=== PATIENT | female | born 1985 | race Caucasian/White ===

== ENCOUNTER 2020-06-29 18:59 | Emergency (ER) | payer SELFPAY ==
[2020-06-29 19:28] VITALS: BP 148/87; PULSE 111; RESP 18; TEMP 36.8; O2SAT 99; BMI 24.3
--- NOTE | 2020-06-29 20:04 | XRR_ITS ---
PROCEDURE INFORMATION: Exam: XR Left Forearm Exam date and time: 06/29/2020 9:28 PM Age: 35 years old Clinical indication: Injury or trauma; Fall; Blunt trauma (contusions or hematomas); Arm, lower; Left TECHNIQUE: Imaging protocol: XR Left forearm. Views: 2 views. COMPARISON: No relevant prior studies available. FINDINGS: Bones/joints: Nondisplaced, intra-articular fracture of the radial styloid. No dislocation. Soft tissues: Normal. XR/XR forearm LT 2V [id number] IMPRESSION: Nondisplaced, intra-articular fracture of the radial styloid.
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
[2020-06-29 21:28] VITALS: PULSE 89; O2SAT 96
[2020-06-29 21:39] VITALS: BP 137/103; PULSE 93; O2SAT 96
--- NOTE | 2020-07-01 09:38 | DCPLANNER ---
manager med surg had message to schedule a follow up appointment for patient with ortho. manager med surg called the ortho clinic, spoke with Anne, gave clinic patients information. manager med surg was told that patients information would be printed and reviewed. Clinic will call patient with appointment information.
--- NOTE | 2020-07-03 10:18 | DCPLANNER ---
Patient has a followup appointment scheduled for Friday, July 03, 2020 at 11:[address] Melara. Clinic will call patient with appointment information.
--- NOTE | 2020-07-10 08:18 | DCPLANNER ---
Patient had a follow up appointment scheduled for 07.03.[address] Melara at [facility] - patient did attend appointment.
== END 2020-06-29 21:45 | disposition home or self-care (01) ==
PROVIDERS: Emergency Provider Nurse Practitioner Family
DX: S52.572A Other intraarticular fracture of lower end of left radius, initial encounter for closed fracture (principal); Y04.8XXA Assault by other bodily force, initial encounter
CPT/HCPCS: 29125; 73090; 99283

== ENCOUNTER 2020-07-03 13:41 | Outpatient (CLI) | payer SELFPAY | END 2020-07-03 13:42 | disposition home or self-care (01) | LOC: SPT 13:43 | PROVIDERS: Visit Provider Orthopaedic Surgery | DX: Z46.89 Encounter for fitting and adjustment of other specified devices (principal); S52.572D Other intraarticular fracture of lower end of left radius, subsequent encounter for closed fracture with routine healing; X58.XXXD Exposure to other specified factors, subsequent encounter | CPT/HCPCS: 97760; L3982 ==

== ENCOUNTER 2020-10-26 12:24 | Inpatient (IN) | payer SELFPAY ==
[2020-10-26 12:37] VITALS: BP 163/90; PULSE 85; RESP 16; TEMP 36.3; O2SAT 99; BMI 29.6
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
[2020-10-26 13:20] LABS: Amphetamines Screen Urine Negative (Negative); Barbiturates Screen Urine Negative (Negative); Benzodiazepines Screen Urine Negative (Negative); Cocaine Screen Urine Negative (Negative); Opiate Screen Urine Negative (Negative); PCP Screen Urine Negative (Negative); THC Screen Urine Positive (Negative)
[2020-10-26 13:36] LABS: Basophils % 0.3 %; Eosinophils % 0.3 %; Hematocrit 42.9 % (37.0-47.0); Hemoglobin 14.1 g/dL (11.5-15.3); Lymphocytes # 1.7 10^3/uL (0.8-4.8); Lymphocytes % 19.5 %; Mean Corpuscular HGB Conc 32.9 g/dL (30.0-36.0); Mean Corpuscular Hemoglobin 32.1 pg (28.0-34.0); Mean Corpuscular Volume 97.7 fL (81-99); Mean Platelet Volume 10.1 fL (7.4-10.4); Monocytes # 0.4 10^3/uL (0.2-0.9); Monocytes % 4.5 %; Neutrophils # 6.56 10^3/uL (1.8-7.7); Neutrophils % 75.2 %; Nucleated Red Blood Cells % 0 %; Platelet Count 314 10^3/cmm (130-400); Red Blood Count 4.39 10^6/uL (4.1-5.3); Red Cell Distribution Width 13.7 % (12.1-15.1); White Blood Count 8.7 10^3/uL (4.0-10.0)
[2020-10-26 13:40] VITALS: BP 155/87; PULSE 79; RESP 18; O2SAT 100
[2020-10-26 13:48] LABS: HCG, Serum Qual Negative (Negative)
[2020-10-26 13:55] LABS: Alanine Aminotransferase 6 U/L (0-33); Albumin Level 4.2 g/dL (3.5-5.2); Alkaline Phosphatase 77 IU/L (35-105); Anion Gap 14.4 (5-19); Aspartate Amino Transferase 10 U/L (0-32); Blood Urea Nitrogen 15 mg/dL (6-20); Calcium 8.9 mg/dL (8.5-10.5); Carbon Dioxide 28 mmol/L (22-29); Chloride 101 mmol/L (98-107); Globulin 2.5 g/dL (1.3-4.6); Glomerular Filtration Rate 94.2 mL/min (90-130); Glucose 111 mg/dL (65-115); Osmolality Calculated 290 mOsm/kg (285-295); Potassium 4.4 mmol/L (3.5-5.1); Salicylate 0.5 mg/dL (3-10); Sodium 139 mmol/L (136-145); Total Bilirubin 0.2 mg/dL (0.15-1.2); Total Protein 6.7 g/dL (6.6-8.7)
[2020-10-26 13:56] LABS: Acetaminophen < 5.0 ug/mL (10-30); Alcohol Level < 10 mg/dL (0-10)
[2020-10-26 14:41] LABS: SARS Covid-2 Antigen Negative (Negative)
[2020-10-26 15:59] VITALS: PULSE 77; RESP 18; O2SAT 100
[2020-10-26 16:23] VITALS: BP 141/91; PULSE 65; RESP 18; TEMP 36.2; O2SAT 98
[2020-10-26] MEDS: OLANZapine 5 mg ODT PO (18:32)
--- NOTE | 2020-10-26 18:35 | PC.NURSE ---
PRN MED PT GIVEN 5MG ZYPREXA FOR ANXIETY, WILL CONTINUE TO MONITOR.
[2020-10-26 20:26] VITALS: BP 135/87; PULSE 71; RESP 18; TEMP 36.6; O2SAT 96
[2020-10-27 06:00] VITALS: BP 149/101; PULSE 64; RESP 21; TEMP 36.7; O2SAT 96; BMI 29.6
--- NOTE | 2020-10-27 09:36 | PM.NHP ---
Providers/Chief Complaint Admitting Physician: Rafa Royal DO Chief Complaint: SI HPI NPU History of Present Illness Alcira Garza is a 35 year old female with no past psychiatric history presented to the emergency department in distress reporting severe depressive and anxiety symptoms in the context of her mother with dementia missing after the patient was required to spend 5 days in long-term for positive weekly drug test. Patient states that she does not know what happened to her mother but suspects that either her or her cousin is responsible for her missing. Patient reports daily low mood states and despair stating that she does not want to be alive anymore but denies any history of suicide attempts or self-harm behavior but continues to report passive thoughts with no active intent or plan. Patient also reports racing thoughts, difficulty controlling her worrying which has impaired her sleep. Denies any panic attacks or panic symptoms. Per above, patient with no history of any major depressive episodes. Patient reports that her current depressive symptoms have occurred solely in the context of acute stressor over the last 2 months since her mother's been missing. She denies past or recent hypomanic or manic episodes She denies any history or recent episodes of perceptual disturbances, no visual, auditory hallucinations, no delusions. Psychiatric review of systems is otherwise negative Patient reports that she lives in a camper and has 2 children that are 15 and 17 that are with her but currently take care of themselves and have their own jobs. Review of Systems General: Reports: 10 or more systems reviewed and unremarkable except in HPI and below Meds NPU Home Medications Medication Instructions Recorded Confirmed Last Taken Type No Known Home Medications 10/26/20 10/26/20 Unknown History Allergies Allergy/AdvReac Type Severity Reaction Status Date / Time buspirone [From BuSpar] Allergy ADR-Depress Verified 10/26/20 13:49 ion [facility] N[facility] Other Psychiatric History: Other Psychiatric History: Reports briefly being treated with Xanax after delivery of her oldest child 17 years ago, otherwise no treatment with psychotropic medication and never been seen by a psychiatrist or therapist Denies any history of psychiatric hospitalization Denies any history of suicide attempt or self-harm behavior Mental Status Exam MSE Comments: Patient is tearful, distressed, sitting up in her bed, tired appearing, appropriately dressed in hospital scrubs, disheveled, good eye contact Psychomotor activity is neither increased nor decreased, no agitation Speech is normal rate and volume, spontaneous, fair articulation, not pressured I am upset, congruent, tearful throughout interview Alert and oriented to person, place, time, situation Memory and concentration appear to be intact per interview Intellectual functioning appears to be average based on vocabulary, interview Thought process, linear, no flight of ideas, no looseness of associations Thought content, no delusions, no hallucinations, passive suicidal thoughts with no active intent or plan, no homicidal ideation Insight and judgment appear to be intact Vitals/I&O/Wt Last Vital Signs Temp 98.1 F 10/27/20 06:00 Pulse 64 10/27/20 06:00 Resp 21 H 10/27/20 06:00 BP 149/101 10/27/20 06:00 Pulse Ox 96 10/27/20 06:00 Weight last 48 hrs Weight 73.573 kg Weight 73.573 kg Data NPU : 10/26/20 13:24 10/26/20 13:24 A&P Assessment and plan (1) Suicidal ideation: Status: Acute (2) Adjustment disorder with mixed anxiety and depressed mood: Status: Acute Additional A&P Information Patient with severe depressive and anxiety symptoms in the context of an acute stressor of her mother missing after the patient had to serve a few days in long-term for a positive drug test for CPS. Patient with no history of major depressive episodes or anxiety prior to this acute stressor. Patient would benefit from initiating a low-dose antidepressant as well as coordination for post discharge counseling targeting coping strategies in the context of ongoing life stressors. Patient does have history of substance abuse with recent legal issues related to possession of methamphetamine and ongoing, daily cannabis use. VOLUNTARY ADMIT to inpatient psychiatry START citalopram 20 mg daily targeting depressive and anxiety symptoms Encouraged patient to participate in unit activities, unit milieu Coordinate with licensed clinical social worker for post discharge mental health care, substance counseling/treatment Involuntary Hold Information 96 Hour Hold: 96 Hour Involuntary Admission: No Attestations NPU Medical Necessity Statement*: Psychiatric hospitalization is indicated for medication stabilization, coordination for safe discharge Anticipate hospital stay to exceed 2 midnights Time Spent in Patient Care: Greater than 35 minutes (>than 50% of time spent in counselling and/or direct pt care on unit). Coding Level of Care Code Acute [employer] Consultant for Ivana Goldman Diagnoses Suicidal ideation R45.851 Adjustment disorder with mixed anxiety and depressed mood F43.23
[2020-10-27] MEDS: citalopram 20 mg Tablet PO (10:13)
[2020-10-27] MEDS: nicotine 21 mg Patch 1 PATCH TRANSDERMA (13:00)
[2020-10-27 14:00] VITALS: BP 157/86; PULSE 65; RESP 18; TEMP 36; O2SAT 95
[2020-10-27] MEDS: OLANZapine 5 mg ODT PO (16:18)
[2020-10-27] MEDS: trazodone 50 mg Tablet PO (21:46)
[2020-10-27 22:00] VITALS: BP 150/93; PULSE 72; RESP 18; TEMP 36.7; O2SAT 98
[2020-10-28] MEDS: hyDROXYzine 25 mg Capsule 50 MG PO ×2 (04:57→18:28)
[2020-10-28 05:45] VITALS: BP 137/87; PULSE 65; RESP 18; TEMP 36.9; O2SAT 95
[2020-10-28] MEDS: nicotine 21 mg Patch 1 PATCH TRANSDERMA (08:57)
[2020-10-28] MEDS: citalopram 20 mg Tablet PO (08:57)
[2020-10-28] MEDS: OLANZapine 5 mg ODT PO ×3 (08:59→22:59)
--- NOTE | 2020-10-28 12:38 | PM.NPN ---
Subjective NPU Subjective: Interval history: Reports significant improvement in her mood, less racing thoughts Reports that she slept well, feels rested Compliant with medication, no reported medication side effects Per staff, no interval behavioral disturbances Mental Status Exam MSE Comments: Sitting up on her bed, calm, cooperative, interactive, good eye contact, appropriately groomed and dressed Psychomotor activity is neither increased nor decreased, no agitation Speech is normal rate and volume, spontaneous, fair articulation, not pressured I am feeling little better, congruent, not labile Alert and oriented to person, place, time, situation Memory and concentration appear to be intact per interview Intellectual functioning appears to be average based on vocabulary, interview Thought process, linear, no flight of ideas, no looseness of associations Thought content, no delusions, no hallucinations, no suicidal ideation, no homicidal ideation Insight and judgment appear to be intact Vitals/I&O/Wt Last Vital Signs Temp 98.4 F 10/28/20 05:45 Pulse 65 10/28/20 05:45 Resp 18 10/28/20 05:45 BP 137/87 10/28/20 05:45 Pulse Ox 95 10/28/20 05:45 Weight last 48 hrs Weight 73.573 kg Data NPU : 10/26/20 13:24 10/26/20 13:24 A&P Assessment and plan (1) Suicidal ideation: Status: Acute (2) Adjustment disorder with mixed anxiety and depressed mood: Status: Acute (3) Grief reaction: Status: Acute Additional A&P Information Reports significant improvements, improved sleep CONTINUE current medication, continue to monitor Involuntary Hold Information 96 Hour Hold: 96 Hour Involuntary Admission: No Attestations NPU Medical Necessity Statement*: Continues to require psychiatric hospitalization for medication stabilization Coding Level of Care Code Acute Drone Pilot for [facility] Fwd Diagnoses Suicidal ideation R45.851 Adjustment disorder with mixed anxiety and depressed mood F43.23 Grief reaction F43.21
--- NOTE | 2020-10-28 13:00 | PC.NURSE ---
Patient came to the nurses station requesting something for anxiety. Administered Zyprexa.
[2020-10-28 14:00] VITALS: BP 136/79; PULSE 65; RESP 18; TEMP 36.7; O2SAT 96
[2020-10-28] MEDS: trazodone 50 mg Tablet PO (21:29)
--- NOTE | 2020-10-28 21:58 | PC.NURSE ---
pt given Trazodone 50mg po for request of sleep aide.
[2020-10-28 22:00] VITALS: BP 135/85; PULSE 77; RESP 17; TEMP 37; O2SAT 95
--- NOTE | 2020-10-28 23:00 | PC.NURSE ---
Pt came to the nurses desk requesting can i have that pill that dissolves under my tongue?
[2020-10-29 06:00] VITALS: BP 123/86; PULSE 77; RESP 17; TEMP 36.6; O2SAT 96
[2020-10-29] MEDS: citalopram 20 mg Tablet PO (08:00)
[2020-10-29] MEDS: OLANZapine 5 mg ODT PO (08:03)
--- NOTE | 2020-10-29 08:10 | PC.NURSE ---
0809 administered Zyprexa Zydis 5mg for anxiety this morning, will continue to monitor.
[2020-10-29] MEDS: nicotine 21 mg Patch 1 PATCH TRANSDERMA (09:08)
--- NOTE | 2020-10-29 09:42 | P.DS_ITS ---
Diagnoses at Discharge Discharge Diagnosis (1) Suicidal ideation: Status: Acute (2) Adjustment disorder with mixed anxiety and depressed mood: Status: Acute (3) Grief reaction: Status: Acute Reason for Visit Reason for Visit: SI Hospital Course Hospital Course 35 year old female with no past psychiatric history presented to the emergency department in distress reporting severe depressive and anxiety symptoms in the context of her mother with dementia missing after the patient was required to spend 5 days in [facility] for positive weekly drug test. Patient states that she does not know what happened to her mother but suspects that either her or her cousin is responsible for her missing. Patient was continuing to report some depressive and anxiety symptoms in the context of her acute stressor and was started on citalopram 20 mg daily which she tolerated well with no reports of any medication side effects. Patient reconstituted quite quickly after initiating medication as well as coordination for following care. Patient participated in unit milieu with no reports of any behavioral disturbances. boom worker arranged for post discharge sober living and following counseling. Patient was not suicidal and was not endorsing any psychiatric symptoms at the time of discharge and did not appear to pose an imminent threat of harm to self or others. Low to moderate risk of harm to self given no current suicidal ideation and no current endorsement of any psychiatric symptoms although her risk may be elevated if she continues to abuse substances or alcohol leading to unexpected, impulsive behavior. Risk mitigation included psychiatric hospitalization for medication stabilization, coordination for safe discharge including arrangement for sober living, follow on substance counseling/treatment. Patient was able to communicate her understanding of the need to abstain from use of substances and alcohol as well as the need for follow-up medication compliance, compliance with medication management follow-up as well as compliance with substance counseling/treatment in order to further mitigate her risk of harm to self and others. Involuntary Hold Information 96 Hour Hold: 96 Hour Involuntary Admission: No Mental Status Exam MSE Comments: Appropriately groomed and dressed, polite, interactive, good eye contact Psychomotor activity is neither increased nor decreased, no agitation Speech is normal rate and volume, spontaneous, fair articulation, not pressured I feel good, congruent, not labile Alert and oriented to person, place, time, situation Memory and concentration appear to be intact per interview Thought process, linear, no flight of ideas, no looseness of associations Thought content, no delusions, no hallucinations, no suicidal ideation, no homicidal ideation Insight and judgment appear to be intact Discharge Data Vitals: Last Vital Signs Temp 97.9 F 10/29/20 06:00 Pulse 77 10/29/20 06:00 Resp 17 10/29/20 06:00 BP 123/86 10/29/20 06:00 Pulse Ox 96 10/29/20 06:00 Discharge Plan Discharge Patient Disposition: Home Condition: Stable Prescriptions: New citalopram 20 mg Tablet 20 mg PO DAILY Qty: 30 RF: 0 No Action No Known Home Medications RF: 0 Discharge Orders: Discharge Order (Routine); Ordered 10/29/20 Ordered By: Rafa Royal Referrals: [facility] [Outside] [facility] [Outside] Discharge Diet: Regular Discharge Activity: Resume usual activity Patient Instructions: Opioid Safety Discharge Attestations NPU Time Spent in Discharge Care*: greater than 30 min Status at Discharge: Cognitive status at discharge: cognitively intact , Behavioral status at discharge: cooperative , Functional status at discharge: independent ambulation Overall status at discharge: patient is back to baseline Coding Level of Care Code Acute Chg FW DC note Diagnoses Suicidal ideation R45.851 Adjustment disorder with mixed anxiety and depressed mood F43.23 Grief reaction F43.21
[2020-10-29 09:51] VITALS: BP 123/86; PULSE 77; RESP 17; TEMP 36.6; O2SAT 96
== END 2020-10-29 12:38 | disposition home or self-care (01) | DRG 882 ==
LOC: ER 14:03 → NP 15:10
PROVIDERS: Admitting Provider Psychiatry & Neurology Psychiatry; Emergency Provider Physician Assistant; Visit Provider Psychiatry & Neurology Psychiatry
DX: F43.23 Adjustment disorder with mixed anxiety and depressed mood (principal); R45.851 Suicidal ideations; F19.10 Other psychoactive substance abuse, uncomplicated; F12.90 Cannabis use, unspecified, uncomplicated
CPT/HCPCS: 80053; 80306; 80307; 84703; 85025; 87426; 99285

== ENCOUNTER → 2021-01-17 11:58 | Outpatient (BNVA) | payer SELFPAY | PROVIDERS: Visit Provider Nurse Practitioner Family | DX: Z20.822 Contact with and (suspected) exposure to COVID-19 (principal) | CPT/HCPCS: 87426 ==

== ENCOUNTER 2021-02-21 14:31 | Emergency (ER) | payer SELFPAY ==
[2021-02-21 14:48] VITALS: BP 151/92; PULSE 79; RESP 18; TEMP 36.9; O2SAT 98; BMI 29.2
--- NOTE | 2021-02-21 15:17 | ED_ITS ---
HPI - Anxiety General: Chief Complaint: Anxiety Stated Complaint: depression/anxiety Time Seen by Provider: 02/21/21 14:55 History of Present Illness: HPI narrative: Patient is a 35-year-old female comes to the ED in need of a medication refill. Patient has a history of anxiety and depression and takes citalopram daily along with a prescription of Vistaril. Patient says she has been out of her prescriptions and she has currently been in and out of [facility] and has not been able to get to a provider to get her prescriptions refilled. She has to report back to intermediate today and states she will be in there for couple weeks. She would like to get a refill on her medications and would also like a referral to behavioral health so they can manage her medications. Patient denies any SI, HI, auditory or visual hallucinations. She is currently just feeling a little anxious, but denies any other symptoms. Associated symptoms: Deny chest pain, chills, fever(s), headache(s), nausea, palpitations or vomiting Review of Systems Const: Denies: fever(s), chills or fatigue Eyes: Denies: change in vision or eye discomfort ENMT: Denies: throat pain, odynophagia, nasal discharge or nasal congestion Card: Denies: chest pain, palpitations, edema, swelling of feet/ankles, dyspnea on exertion or orthopnea Resp: Denies: dyspnea, productive cough or non-productive cough GI: Denies: abdominal pain, nausea, vomiting, diarrhea, constipation or hematochezia : Denies: flank pain, dysuria or hematuria Musc: Denies: neck pain, back pain or extremity swelling Skin/Breast: Denies: rash or new lesions Neuro: Denies: headache(s), numbness in extremities or weakness in extremities Psych: Reports: anxiety and depression (history of depression); Denies: visual hallucinations, auditory hallucinations, suicidal ideation or homicidal ideation [facility] ED PFSH: Medical History Grief reaction Social History Smoking and tobacco status: current every day smoker cigarettes Alcohol intake: current Alcohol intake frequency: 0-2 Drinks per Day Physical Exam Const: COMMON NORMALS: no acute distress, patient oriented x3 and alert GENERAL APPEARANCE: cooperative and anxious HENMT: COMMON NORMALS: normocephalic HEAD & SCALP: normocephalic MOUTH: Normal oral and palatal mucosa present THROAT: posterior oropharynx normal and uvula midline Neck/C-Spine: COMMON NORMALS: supple GENERAL: Yes normal visual inspection Resp: COMMON NORMALS: normal respiratory effort, No retractions, No use of accessory muscles and clear to auscultation bilaterally AUSCULTATION: clear to auscultation bilaterally Cardio: COMMON NORMALS: regular rate, regular rhythm, S1 normal heart sound present, S2 normal heart sound present, No gallops present (Cardio), No clicks present (Cardio), No murmurs present (Cardio) and Peripheral pulses 2+ throughout RATE: regular rate RHYTHM: regular rhythm HEART SOUNDS: S1 normal heart sound present and S2 normal heart sound present PERIPHERAL PULSES: Peripheral pulses 2+ throughout GI: COMMON NORMALS: Normal to inspection, nondistended, normoactive bowel sounds present, Soft to palpation, non-tender and no masses PALPATION: Yes Soft to palpation : COMMON NORMALS: Yes no CVA tenderness BLADDER/KIDNEY EXAM: Yes no CVA tenderness Back/Pelvis: COMMON NORMALS: no CVA tenderness Neuro: COMMON NORMALS: patient oriented x3 and moves all extremities SENSORIUM/ORIENTATION: Yes alert Psych: COMMON NORMALS: mental status grossly normal, Normal thought process present and speech normal ATTITUDE: Yes calm ACTIVITY/MOTOR BEHAVIOR: Yes appropriate eye contact SPEECH: Yes normal speech MOOD & AFFECT: Yes anxious THOUGHT PROCESS: Normal thought process present THOUGHT CONTENT: Yes Normal thought content present, No Suicidality present, No Homicidality present and No Hallucination(s) present ATTENTION/CONCENTRATION: Yes attention grossly intact and Yes concentration grossly intact MEMORY /COGNITION: Yes memory grossly intact and Yes cognition grossly intact INSIGHT: Good insight present (Psych) JUDGEMENT: Good judgement present (Psych) Skin: GENERAL SKIN EXAM: dry skin Course Vital Signs: Vital signs: Vital Signs Temperature 98.5 F 02/21/21 14:48 Pulse Rate 79 02/21/21 14:48 Respiratory Rate 18 02/21/21 14:48 Blood Pressure 151/92 02/21/21 14:48 Pulse Oximetry 98 02/21/21 14:48 MDM - Anxiety MDM Narrative: Medical decision making narrative: Patient is a 35-year-old female comes to the ED for medication refill due to her anxiety. Denies any SI, HI or auditory visual hallucinations. Patient has been in and out of intermediate for the past couple weeks and has to go back to intermediate today and has been unable to get to her doctor's appointment to get medications refilled. She takes citalopram and Vistaril. She is experiencing some anxiety currently because she is got a go back to intermediate. The rest of her exam is benign and her vitals are stable. Patient was given a dose of p.o. Ativan while here in the ED to help with anxiety. I placed an order with case management for patient to be referred to behavioral health for further medication management of her depression and anxiety. She was discharged home with a prescription for citalopram and Vistaril. I told patient case management will be calling her in the next couple days set up an appointment with behavioral health. Return to ED precautions given. Patient understood and agreed with plan. Discharge Plan Discharge Patient Disposition: Home Clinical Impression: Anxiety, Encounter for medication refill Condition: Stable Prescriptions: New Vistaril 50 mg capsule 50 mg PO Q8H PRN (Reason: acute anxiety) Qty: 30 RF: 0 citalopram 20 mg tablet 20 mg PO DAILY Qty: 30 RF: 0 No Action citalopram 20 mg Tablet 20 mg PO DAILY Qty: 30 RF: 0 Discharge Orders: Discharge ED (Routine); Ordered 02/21/21 Ordered By: Emigdio Kaur Discharge Diet: Regular Discharge Activity: Resume usual activity Patient Instructions: Depression (DC), Anxiety (ED) Activity Restrictions/Additional Instructions: Follow-up with medical provider as directed. Case management will contact you in the next several days set up an appointment with behavioral health. Take medications as prescribed. Return to the ER or your medical provider if condition worsens. Please read and understand discharge instructions. Thank you for choosing [facility] for your healthcare needs today. Please realize this is an emergency room and that we are providing you with a medical screening exam and this may not be complete and all inclusive of all the testing and or work up that you may need to determine your ailment or severity of your illness. It is very important that you follow up as instructed or that you return to the Emergency Department should you have concerns or if your condition changes or worsens in any way. Coding Level of Care Code ED Coining Press Operator for Ivana Goldman Exam Comprehensive
[2021-02-21] MEDS: LORazepam 1 mg Tablet PO (15:36)
--- NOTE | 2021-02-24 15:15 | DCPLANNER ---
respiratory services manager had message to speak with patient about getting services at [facility]. respiratory services manager called patient, was unable to speak with patient, spoke with her patients father. respiratory services manager was told that patient turned herself into the [facility].
== END 2021-02-21 15:40 | disposition home or self-care (01) ==
PROVIDERS: Emergency Provider Physician Assistant
DX: Z76.0 Encounter for issue of repeat prescription (principal); F41.9 Anxiety disorder, unspecified; F17.210 Nicotine dependence, cigarettes, uncomplicated
CPT/HCPCS: 99283

== ENCOUNTER 2021-08-14 13:14 | Emergency (ER) | payer SELFPAY ==
[2021-08-14 13:48] VITALS: BP 148/82; PULSE 81; RESP 14; TEMP 37; O2SAT 99; BMI 32.0
--- NOTE | 2021-08-14 14:15 | W.ED.GENADLT ---
HPI - General Adult General: Chief complaint: Nausea/Vomiting/Diarrhea Stated complaint: Vomiting Time Seen by Provider: 08/14/21 14:07 History of Present Illness: Patient is a 36-year-old female with history of renal colic presenting to emergency room with acute onset abdominal pain and N/V and L flank pain. Pa patient reports that pain started 3 days ago has worsened. Patient denies any urinary complaints at this time. Denies any diarrhea/melena/hematochezia. Patient denies any active rectal bleeding or rectal pain. Patient has no urinary complaints or new vaginal discharge. Onset:3 days ago Duration:ongoing Location:home Severity:moderate Associated symptoms: Reports nausea and vomiting; Deny chest pain, dyspnea, rash or palpitations Review of Systems Const: Denies: fever(s) or chills Eyes: Denies: change in vision ENMT: Denies: mouth pain Card: Denies: chest pain or palpitations Resp: Denies: dyspnea or non-productive cough GI: Reports: abdominal pain, nausea and vomiting; Denies: diarrhea : Reports: flank pain; Denies: dysuria Musc: Denies: extremity pain Skin/Breast: Denies: rash or new lesions Neuro: Denies: weakness in extremities Psych: Reports: other (Normal mood) Thierno/Lymph: Denies: easy bruising PFSH ED PFSH: Medical History Grief reaction Psychiatric care Social History Smoking and tobacco status: current every day smoker cigarettes Packs smoked per day: 1 Years cigarettes smoked: 8 Quit status (tobacco): not considering quitting Second hand smoke exposure: Yes Alcohol intake: current Alcohol intake frequency: 0-2 Drinks per Day Physical Exam Const: COMMON NORMALS: alert HENMT: COMMON NORMALS: atraumatic HEAD & SCALP: atraumatic MOUTH: moist mucous membranes not abnormal Eye: COMMON NORMALS: EOMs intact bilaterally and conjunctivae normal CONJUNCTIVA: Yes conjunctivae normal Neck/C-Spine: COMMON NORMALS: full ROM and supple Resp: COMMON NORMALS: normal respiratory effort and clear to auscultation bilaterally AUSCULTATION: clear to auscultation bilaterally Cardio: COMMON NORMALS: regular rate RATE: regular rate GI: COMMON NORMALS: Soft to palpation PALPATION: Yes Soft to palpation OTHER: + Left CVA tenderness to palpation, mild diffuse abdominal tenderness to palpation Extremity: COMMON NORMALS: full ROM Neuro: SENSORIUM/ORIENTATION: Yes alert MOTOR EXAM: No Abnormal motor strength present and Other motor observations present (no focal motor deficits) Psych: COMMON NORMALS: speech normal SPEECH: Yes normal speech MOOD & AFFECT: Yes euthymic mood Course Vital Signs: Vital signs: Vital Signs Temperature 98.6 F 08/14/21 13:48 Pulse Rate 80 08/14/21 19:05 Respiratory Rate 16 08/14/21 19:05 Blood Pressure 155/87 08/14/21 19:05 Pulse Oximetry 100 08/14/21 19:05 MDM - General Adult Medical Decision Making 36-year-old female with history of renal colic presenting w/ L flank pain. On exam, patient has mild L CVA. No guarding no rebound tenderness. Rest of vitals within normal limit. H&H appears to be stable. White count 6.9. 3+ blood in the urine. Patient is currently not on her period. This is likely renal colic. Patient received 2 L of fluid, Tylenol with significant improvement in pain. UA was equivocal for UTI however in the setting of stone, will treat empirically with IV antibiotics in the ED. Patient received ceftriaxone. No suspicion for other acute intra-abdominal pathology including SBO, biliary pathology, appendicitis, diverticulitis, or other emergent condition requiring surgery. Rx tylenol PRN abd pain, maalox/pepcid/protonix PRN dyspepsia, and zofran PRN nausea/vomiting, cefdinir for possible UTI Disposition: Discharge. Patient counseled regarding diagnostic impression, treatment plan. Patient given ED strict return precautions to return for continuation, worsening, or development of new symptoms. Instructed to f/u w/ PCP regarding symptoms today. Patient verbalized understanding. Patient is given strict return precaution for any signs of worsening pain, fever/chills, dehydration, ability to tolerate medicine, or any new concerning complaints. Lab Data : 08/14/21 15:02 08/14/21 15:02 Laboratory Results WBC 6.9 10^3/uL (4.0-10.0) 08/14/21 15:02 RBC 4.73 10^6/uL (4.1-5.3) 08/14/21 15:02 Hgb 14.8 g/dL (11.5-15.3) 08/14/21 15:02 Hct 45.5 % (37.0-47.0) 08/14/21 15:02 MCV 96.2 fl (81-99) 08/14/21 15:02 MCH 31.3 pg (28.0-34.0) 08/14/21 15:02 MCHC 32.5 g/dL (30.0-36.0) 08/14/21 15:02 RDW 13.3 % (12.1-15.1) 08/14/21 15:02 Plt Count 327 10^3/cmm (130-400) 08/14/21 15:02 MPV 10.6 fL (7.4-10.4) H 08/14/21 15:02 Neut % (Auto) 71.6 % 08/14/21 15:02 Lymph % (Auto) 17.4 % 08/14/21 15:02 Coke % (Auto) 9.4 % 08/14/21 15:02 Eos % (Auto) 1.2 % 08/14/21 15:02 Baso % (Auto) 0.3 % 08/14/21 15:02 Neut # (Auto) 4.93 10^3/uL (1.8-7.7) 08/14/21 15:02 Lymph # (Auto) 1.2 10^3/uL (0.8-4.8) 08/14/21 15:02 Coke # (Auto) 0.7 10^3/uL (0.2-0.9) 08/14/21 15:02 Eos # (Auto) 0.1 10^3/uL (0.0-0.8) 08/14/21 15:02 Baso # (Auto) 0.0 10^3/uL (0.0-0.1) 08/14/21 15:02 Nucleated RBC % (auto) 0 % 08/14/21 15:02 Nucleated RBCs # 0.0 /100WBC 08/14/21 15:02 Sodium 139 mmol/L (136-145) 08/14/21 15:02 Potassium 3.8 mmol/L (3.5-5.1) 08/14/21 15:02 Chloride 100 mmol/L (98-107) 08/14/21 15:02 Carbon Dioxide 24 mmol/L (22-29) 08/14/21 15:02 Anion Gap 18.8 (5-19) 08/14/21 15:02 BUN 11 mg/dL (6-20) 08/14/21 15:02 Creatinine 0.7 mg/dL (0.5-0.9) 08/14/21 15:02 GFR Calculation 93.6 mL/min (90-130) 08/14/21 15:02 Glucose 85 mg/dL (65-115) 08/14/21 15:02 Calculated Osmolality 287 mOsm/kg (285-295) 08/14/21 15:02 Calcium 8.5 mg/dL (8.5-10.5) 08/14/21 15:02 Total Bilirubin 0.2 mg/dL (0.15-1.2) 08/14/21 15:02 AST 14 U/L (0-32) 08/14/21 15:02 ALT 10 U/L (0-33) 08/14/21 15:02 Alkaline Phosphatase 99 IU/L (35-105) 08/14/21 15:02 Total Protein 7.4 g/dL (6.6-8.7) 08/14/21 15:02 Albumin 4.5 g/dL (3.5-5.2) 08/14/21 15:02 Globulin 2.9 g/dL (1.3-4.6) 08/14/21 15:02 Lipase 12 U/L (13-60) L 08/14/21 15:02 Urine Color Yellow (Yellow) 08/14/21 15:32 Urine Appearance Clear (CLEAR) 08/14/21 15:32 Urine pH 5 (5-7) 08/14/21 15:32 Ur Specific [place] 1.020 (1.005-1.030) 08/14/21 15:32 Urine Protein Neg (Negative) 08/14/21 15:32 Urine Glucose (UA) Norm (Normal) 08/14/21 15:32 Urine Ketones 1+ (Negative) H 08/14/21 15:32 Urine Blood 3+ (Negative) H 08/14/21 15:32 Urine Nitrate Negative (Negative) 08/14/21 15:32 Urine Bilirubin Neg (Negative) 08/14/21 15:32 Urine Urobilinogen Neg mg/dL (Negative) 08/14/21 15:32 Ur Leukocyte Esterase 1+ (Negative) H 08/14/21 15:32 Urine RBC 5-10 /hpf (0-2) H 08/14/21 15:32 Urine WBC 5-10 /hpf (0-5) H 08/14/21 15:32 Ur Squamous Epith Cells 5-10 /hpf (0-5) H 08/14/21 15:32 Amorphous Sediment Not Reportable 08/14/21 15:32 Urine Bacteria 3+ /hpf (NONE) H 08/14/21 15:32 Urine HCG, Qual Negative (Negative) 08/14/21 15:32 Discharge Plan Discharge Patient Disposition: Home Clinical Impression: Renal colic, Acute flank pain Condition: Stable Prescriptions: New acetaminophen 500 mg tablet 500 mg PO Q6H PRN (Reason: pain) 5 Days Qty: 20 0RF Pepcid 20 mg tablet 20 mg PO BID PRN (Reason: abdominal pain) 10 Days Qty: 20 0RF ondansetron 4 mg tablet,disintegrating 4 mg PO TID PRN (Reason: nausea and vomiting) 4 Days Qty: 12 0RF Maalox Advanced 1,000-60 mg tablet,chewable 1 tab PO TID PRN (Reason: abdominal pain) 7 Days Qty: 21 0RF Protonix [address] for susp in packet 40 mg PO DAILY PRN (Reason: abdominal pain) 42 Days Qty: 42 0RF cefdinir 300 mg capsule 300 mg PO BID 10 Days Qty: 20 0RF No Action citalopram 20 mg tablet 20 mg PO DAILY Qty: 30 1RF propranolol 20 mg tablet 20 mg PO BID PRN (Reason: anxiety) Qty: 60 1RF trazodone 50 mg tablet 100 mg PO .HS PRN (Reason: insomnia) Qty: 60 1RF prazosin 5 mg capsule 5 mg PO .HS Qty: 30 1RF Discharge Orders: Discharge ED (Routine); Ordered 08/14/21 Ordered By: Marissa Jacob Discharge Diet: Advance as tolerated Discharge Activity: Increase activity as tolerated Patient Instructions: Renal Colic (ED) Activity Restrictions/Additional Instructions: Please come back if you have any worsening abdominal pain, fever or chills, nausea or vomiting, diarrhea, significant blood in the stool, inability hold down liquid or solids, or any new concerning complaints. Our family caseworker will have you follow-up with Dr. Whitfield in the next few days. You would be expected to have a phone call with our family caseworker who will put you on the schedule. You can expect a call from us in the next 2-3 days. If you don't hear from us, call us back in the emergency room at [phone]. Stand Alone Forms: Work/School Release Coding Level of Care Code ED Powertrain Design Engineer for [employer] Fwd Exam Comprehensive
[2021-08-14 14:21] VITALS: BP 160/97; PULSE 75; RESP 16; O2SAT 99
[2021-08-14] MEDS: lidocaine 2% viscous 15 ML, aluminum-mag hydrox-simethicon 30 ML, sucralfate oral liq 1 GM PO (14:48)
[2021-08-14] MEDS: sodium chloride 0.9% 1,000 ML 999 ML IV ×2 (14:57→17:56)
[2021-08-14 15:14] LABS: Basophils % 0.3 %; Eosinophils # 0.1 10^3/uL (0.0-0.8); Eosinophils % 1.2 %; Hematocrit 45.5 % (37.0-47.0); Hemoglobin 14.8 g/dL (11.5-15.3); Lymphocytes # 1.2 10^3/uL (0.8-4.8); Lymphocytes % 17.4 %; Mean Corpuscular HGB Conc 32.5 g/dL (30.0-36.0); Mean Corpuscular Hemoglobin 31.3 pg (28.0-34.0); Mean Corpuscular Volume 96.2 fl (81-99); Mean Platelet Volume 10.6 fL (7.4-10.4); Monocytes # 0.7 10^3/uL (0.2-0.9); Monocytes % 9.4 %; Neutrophils # 4.93 10^3/uL (1.8-7.7); Neutrophils % 71.6 %; Nucleated Red Blood Cells % 0 %; Platelet Count 327 10^3/cmm (130-400); Red Blood Count 4.73 10^6/uL (4.1-5.3); Red Cell Distribution Width 13.3 % (12.1-15.1); White Blood Count 6.9 10^3/uL (4.0-10.0)
[2021-08-14 15:42] LABS: Alanine Aminotransferase 10 U/L (0-33); Albumin Level 4.5 g/dL (3.5-5.2); Alkaline Phosphatase 99 IU/L (35-105); Anion Gap 18.8 (5-19); Aspartate Amino Transferase 14 U/L (0-32); Blood Urea Nitrogen 11 mg/dL (6-20); Calcium 8.5 mg/dL (8.5-10.5); Carbon Dioxide 24 mmol/L (22-29); Chloride 100 mmol/L (98-107); Globulin 2.9 g/dL (1.3-4.6); Glomerular Filtration Rate 93.6 mL/min (90-130); Glucose 85 mg/dL (65-115); Lipase 12 U/L (13-60); Osmolality Calculated 287 mOsm/kg (285-295); Potassium 3.8 mmol/L (3.5-5.1); Sodium 139 mmol/L (136-145); Total Bilirubin 0.2 mg/dL (0.15-1.2); Total Protein 7.4 g/dL (6.6-8.7)
[2021-08-14] MEDS: ondansetron 2 mg/ML SDV 2 mL 4 MG IVP (16:56)
[2021-08-14 16:58] VITALS: RESP 16
[2021-08-14] MEDS: morphine 4 mg/mL SDV 1 mL 2 MG IVP (16:58)
[2021-08-14 16:59] VITALS: BP 164/92; PULSE 79; RESP 16; O2SAT 99
[2021-08-14 17:33] LABS: Urine Appearance Clear (CLEAR); Urine Color Yellow (Yellow)
[2021-08-14 17:34] LABS: Add Urine Microscopic? YES; Bilirubin Urine Neg (Negative); Blood Urine 3+ (Negative); Glucose Urine UA Norm (Normal); Ketones Urine 1+ (Negative); Leukocyte Esterase Urine 1+ (Negative); Nitrate Urine Negative (Negative); Protein Urine Neg (Negative); Urobilinogen Urine Neg (Negative); pH Urine 5 (5-7)
[2021-08-14 17:35] LABS: Add Urine Culture? Yes; Bacteria Urine 3+ /hpf
[2021-08-14] MEDS: cefTRIAXone 1,000 MG in sodium chloride 0.9% (plus) 50 ML 100 MG IV (17:46)
[2021-08-14 19:05] VITALS: BP 155/87; PULSE 80; RESP 16; O2SAT 100
--- NOTE | 2021-08-15 08:10 | DCPLANNER ---
Addendum entered by Stormy Perales 09/12/21 18:32: Patient had a follow up appointment scheduled for 08.26.[address] Fong - patient did not attend appointment. Addendum entered by Stormy Perales 08/19/21 06:40: Patient has a follow up appointment scheduled for Thursday, August 26, 2021 at 2:[address] Fong at [facility]. Clinic will call patient with appointment information. Original Note: trials manager had message to schedule a follow up appointment for patient with Dr. Fong. trials manager sent patients information to the front office staff of Internal Medicine. Patients information will be printed and reviewed. Clinic will call patient with appointment information.
== END 2021-08-14 19:07 | disposition home or self-care (01) ==
PROVIDERS: Emergency Provider Emergency Medicine
DX: N23 Unspecified renal colic (principal); F17.210 Nicotine dependence, cigarettes, uncomplicated
CPT/HCPCS: 80053; 81001; 81025; 83690; 85025; 87077; 87086; 87186; 96361; 96365; 96375; 99284; J0696; J2270; J2405; J7030

== ENCOUNTER 2023-01-24 18:38 | Emergency (ER) | payer SELFPAY ==
[2023-01-24 18:40] VITALS: BP 162/106; PULSE 92; RESP 16; TEMP 36.6; O2SAT 100; BMI 29.9
--- NOTE | 2023-01-24 18:49 | ED_ITS ---
HPI - Animal Bite General: Chief Complaint: Animal Bite Stated Complaint: possible spider bite to face Time Seen by Provider: 01/24/23 18:39 History of Present Illness: 37-year-old female comes in today with a tender erythematous lesion to the left facial cheek. Patient reports noticing the lesion this morning with swelling to the face. Swelling has improved throughout the day. Patient believes he may have been bit by a spider. Review of Systems General: Reports: 10 or more systems reviewed and unremarkable except in HPI and below Skin/Breast: Reports: new lesions PFS ED PFSH: Medical History (Updated 01/24/23 @ 18:59 by ROMANA Martel) Grief reaction Pharyngitis URI with cough and congestion Social History Smoking and tobacco status: current every day smoker cigarettes Packs smoked per day: 1 Years cigarettes smoked: 8 Quit status (tobacco): not considering quitting Second hand smoke exposure: Yes Alcohol intake: current Alcohol intake frequency: 0-2 Drinks per Day Physical Exam Const: COMMON NORMALS: alert HENMT: COMMON NORMALS: normocephalic HEAD & SCALP: normocephalic FACE & SINUS: erythema and edema FACE & SINUS IMAGES: 1. Lesion surrounded by 3 cm of erythema and mild swelling Neck/C-Spine: COMMON NORMALS: full ROM and no lymphadenopathy Resp: COMMON NORMALS: normal respiratory effort and clear to auscultation bilaterally AUSCULTATION: clear to auscultation bilaterally Cardio: COMMON NORMALS: regular rate and regular rhythm RATE: regular rate RHYTHM: regular rhythm GI: COMMON NORMALS: Soft to palpation PALPATION: Yes Soft to palpation and No Tenderness to palpation present (GI) Extremity: COMMON NORMALS: full ROM Neuro: SENSORIUM/ORIENTATION: Yes alert Skin: LESIONS: lesion noted (Crusted lesion left facial cheek) Course Vital Signs: Vital signs: Vital Signs Temperature 97.9 F 01/24/23 18:40 Pulse Rate 92 01/24/23 18:40 Respiratory Rate 16 01/24/23 18:40 Blood Pressure 162/106 01/24/23 18:40 Pulse Oximetry 100 01/24/23 18:40 Oxygen Delivery Me thod Room Air 01/24/23 18:40 MDM - Animal Bite Medical Decision Making Patient has a small lesion with surrounding erythema to the left facial cheek. Vital signs are normal except for some elevated blood pressure. Respirations are even lungs are clear to auscultation. Abdomen soft nontender. Differential diagnosis includes but not limited to folliculitis, infected insect bite, local reaction insect bite. The timing would suggest possible local reaction to insect bite. Evaluation suggest probably a infection of the hair follicle. Patient denies any history of MRSA. We will go ahead and start patient on Augmentin and mupirocin ointment to cover for wound infection. Patient was given 10 mg of dexamethasone IM for probable local reaction to insect bite. Recommend avoiding picking of the wound. Just wash the wound twice a day and apply antibiotic ointment. Patient to monitor for worsening swelling and tenderness, and systemic symptoms. Patient reported understanding of care plan and need for follow-up or return to the ER. No radiology studies performed this visit Discharge Plan Discharge Patient Disposition: Home Clinical Impression: Infected insect bite of cheek Qualifiers: Encounter type: initial encounter Qualified Code(s): S00.86XA - Insect bite (nonvenomous) of other part of head, initial encounter Condition: Stable Prescriptions: New amoxicillin-pot clavulanate 875-125 mg tablet 1 tab PO BID Qty: 13 0RF No Action loratadine 10 mg tablet 10 mg PO DAILY PRN (Reason: allergic symptoms) Qty: 30 0RF dextromethorphan-guaifenesin 30-600 mg tablet extended release 12 hr 1 tab PO Q12H Qty: 14 0RF Discharge Orders: Discharge ED (Routine); Ordered 01/24/23 Ordered By: David Cerrato Discharge Diet: Usual diet Discharge Activity: Increase activity as tolerated Patient Instructions: Wound Infection (ED) Activity Restrictions/Additional Instructions: Clean wound twice a day with mild soap and water. Cover with antibiotic ointment until healed. Use Augmentin, amoxicillin with potassium clavulanate, 1 tablet twice a day for total of 7 days. Drink plenty of water with medications. Activity as tolerated. Follow-up with primary care in 3 days for recheck. Return to ED for worsening symptoms such as high fever greater than 100.4, increasing swelling of the face, uncontrolled pain, or new concerns. Coding Level of Care Code ED Wharfinger Chief for Ivana Goldman
[2023-01-24] MEDS: mupirocin oint 22 gm 1 APPLIC TOPICAL (19:07)
[2023-01-24] MEDS: amoxicillin-clav 875-125 mg Tablet 1 TAB PO (19:07)
[2023-01-24] MEDS: dexamethasone 10 mg/mL INJ IM (19:08)
[2023-01-24 19:13] VITALS: BP 158/105; O2SAT 95
== END 2023-01-24 19:13 | disposition home or self-care (01) ==
PROVIDERS: Emergency Provider Nurse Practitioner Family
DX: S00.86XA Insect bite (nonvenomous) of other part of head, initial encounter (principal); W57.XXXA Bitten or stung by nonvenomous insect and other nonvenomous arthropods, initial encounter; F17.210 Nicotine dependence, cigarettes, uncomplicated
CPT/HCPCS: 96372; 99284; J1100

== ENCOUNTER → 2023-08-19 08:53 | Outpatient (BNVA) | payer SELFPAY | PROVIDERS: PCP Family Medicine Adult Medicine; Visit Provider Family Medicine Adult Medicine | DX: I10 Essential (primary) hypertension (principal); F41.1 Generalized anxiety disorder; F33.2 Major depressive disorder, recurrent severe without psychotic features | CPT/HCPCS: 85025 ==

== ENCOUNTER 2024-10-04 21:02 | Emergency (ER) | payer MEDICAID, SELFPAY ==
[2024-10-04 21:13] VITALS: BP 171/108; PULSE 87; RESP 16; TEMP 36.4; O2SAT 98
--- NOTE | 2024-10-04 22:38 | ECG_ITS ---
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 Measurements Intervals [place] Rate: 68 P: 59 MD: 151 QRS: 46 QRSD: 75 T: 44 QT: 355 QTc: 379 Interpretive Statements SINUS RHYTHM No previous ECG available for comparison Electronically Signed On 10-05-2024 05:57:21 CDT by Jhonny Diego M.D. [email or web address]
--- NOTE | 2024-10-04 22:41 | ED_ITS ---
HPI - Headache 2 General: Chief Complaint: Headache Stated Complaint: headache Time Seen by Provider: 10/04/24 22:39 History of Present Illness: 39-year-old female with history of hyper tension who presents emergency room with police with a headache and hypertension. She has not been on her medication for about a year now. She is currently incarcerated. Said headache started earlier today. She is slightly hypertensive on presentation. No chest pain. No altered mental status. No focal motor deficits. No nausea or vomiting. Related Data Previous Rx's ?Medication ?Instructions ?Recorded fluoxetine 20 mg capsule (Prozac) 20 mg PO DAILY #30 c aps 08/19/23 lisinopril 20 mg tablet 20 mg PO DAILY high blood pr essure 08/19/23 #30 tabs lisinopril 20 mg tablet 20 mg PO DAILY #30 tabs 09/17 01/11 Allergies Allergy/AdvReac Type Severity Reaction Status Date / Time buspirone (From BuSpar) Allergy ADR-Depress Verified 10/04/24 21:16 ion Review of Systems 2 Narrative: Constitutional symptoms: Negative except as documented in HPI. Skin symptoms: Negative except as documented in HPI. Eye symptoms: Negative except as documented in HPI. ENMT symptoms: Negative except as documented in HPI. Respiratory symptoms: Negative except as documented in HPI. Cardiovascular symptoms: Negative except as documented in HPI. Gastrointestinal symptoms: Negative except as documented in HPI. Genitourinary symptoms: Negative except as documented in HPI. Musculoskeletal symptoms: Negative except as documented in HPI. Neurologic symptoms: Negative except as documented in HPI. Psychiatric symptoms: Negative except as documented in HPI. Endocrine symptoms: Negative except as documented in HPI. PFSH ED 2 PFSH: Medical History (Updated 10/05/24 @ 00:[address] MD) IBS (irritable bowel syndrome) Carpal tunnel syndrome of right wrist Numbness in both hands Vaginal bleeding between periods HTN (hypertension) with goal to be determined Surgical History (Updated 07/07/23 @ 13:40 by Edmond Barajas MD) H/O elbow surgery H/O wrist surgery Family History (Updated 07/07/23 @ 13:10 by Bree Sanders LPN) Father Heart disease COPD (chronic obstructive pulmonary disease) Lung disease Mother No problems noted. Social History (Updated 07/07/23 @ 13:11 by Bree Sanders LPN) Smoking and tobacco/nicotine status: current every day tobacco/nicotine user cigarettes Packs smoked per day: 1 Years cigarettes smoked: 8 Quit status (tobacco/nicotine): not considering quitting Second hand smoke exposure: Yes Alcohol intake: current Alcohol intake frequency: 0-2 Drinks per Day Substance/Drug Use: current Substance/Drug use frequency: daily Physical Exam 2 Narrative: EXAM NARRATIVE: General: Alert, no acute distress. Skin: Warm, dry. Head: Normocephalic, atraumatic. Neck: Supple, trachea midline. Eye: Extraocular movements are intact. Ears, nose, mouth and throat: mucosa moist. Cardiovascular: Regular, Normal peripheral perfusion. Respiratory: Lungs are clear to auscultation, respirations are non-labored, breath sounds are equal, Symmetrical chest wall expansion. Gastrointestinal: Soft, Nontender, Non distended Musculoskeletal: Normal ROM, no deformity. Neurological: Alert and oriented, No focal neurological deficit observed. Psychiatric: Cooperative, appropriate mood & affect. Course 2 Vital Signs: Vital signs: Vital Signs Temperature 97.5 F L 10/04/24 21:13 Pulse Rate 75 10/05/24 00:10 Respiratory Rate 18 10/05/24 00:00 Blood Pressure 136/101 10/05/24 00:10 Pulse Oximetry 98 10/05/24 00:10 Oxygen Delivery Me thod Room Air 10/04/24 21:13 MDM - Headache Medical Decision Making Medical decision making: Differential diagnosis including but not limited to and based on the above HPI, review of systems and physical exam: Patient presents with hypertension: Essential hypertension. Stroke. acute coronary syndrome. kidney failure. congestive heart failure. anxiety. Orders placed to evaluate differential diagnosis based on the above differential, HPI and physical exam EKG: Time 2309. Rate 68. Normal sinus rhythm, No ST-T changes, no ectopy, normal [place] & QRS intervals, This was reviewed and interpreted by myself the ER physician at 2315. Lab Review: Laboratory results were reviewed and interpreted by myself the emergency room physician. No leukocytosis. No anemia. No renal failure. Cardiac markers negative. I reviewed the patient's medical record. Assessment and plan: Hypertension Headache ?Clonidine and first dose lisinopril restarted in the emergency room. - Discharged home - Discussed plan with patient. Answered any questions. - Evaluation and treatment of this problem were appropriate in the emergency setting. Lab Data 10/04/24 22:57 10/04/24 22:57 Laboratory Results WBC 8.37 10^3/uL (3.29-11.43) 10/04/24 22:57 RBC 4.59 10^6/uL (3.85-5.65) 10/04/24 22:57 Hgb 15.20 g/dL (11.27-16.99) 10/04/24 22:57 Hct 45.4 % (36-47) 10/04/24 22:57 MCV 98.9 fl (85-98) H 10/04/24 22:57 MCH 33.1 pg (27-33) H 10/04/24 22:57 MCHC 33.5 g/dL (30-55) 10/04/24 22:57 RDW 11.9 % (12.1-15.1) L 10/04/24 22:57 Plt Count 292 10^3/cmm (157-399) 10/04/24 22:57 MPV 9.9 fL (7.4-10.4) 10/04/24 22:57 Neut % (Auto) 68.7 % 10/04/24 22:57 Lymph % (Auto) 23.9 % 10/04/24 22:57 [place] % (Auto) 5.6 % 10/04/24 22:57 Eos % (Auto) 1.0 % 10/04/24 22:57 Baso % (Auto) 0.6 % 10/04/24 22:57 Neut # (Auto) 5.75 10^3/uL (1.8-7.7) 10/04/24 22:57 Lymph # (Auto) 2.0 10^3/uL (0.8-4.8) 10/04/24 22:57 [place] # (Auto) 0.5 10^3/uL (0.2-0.9) 10/04/24 22:57 Eos # (Auto) 0.1 10^3/uL (0.0-0.8) 10/04/24 22:57 Baso # (Auto) 0.1 10^3/uL (0.0-0.1) 10/04/24 22:57 Nucleated RBC % (auto) 0 % 10/04/24 22:57 Nucleated RBCs # 0.0 /100WBC 10/04/24 22:57 Sodium 138 mmol/L (136-145) 10/04/24 22:57 Potassium 4.2 mmol/L (3.5-5.1) 10/04/24 22:57 Chloride 103 mmol/L (98-107) 10/04/24 22:57 Carbon Dioxide 18 mmol/L (22-29) L 10/04/24 22:57 Anion Gap 21.2 (5-19) H 10/04/24 22:57 BUN 14 mg/dL (6-20) 10/04/24 22:57 Creatinine 0.7 mg/dL (0.5-0.9) 10/04/24 22:57 GFR Calculation 92.2 mL/min (90-130) 10/04/24 22:57 Glucose 93 mg/dL (65-115) 10/04/24 22:57 Calculated Osmolality 286 mOsm/kg (285-295) 10/04/24 22:57 Calcium 9.7 mg/dL (8.5-10.5) 10/04/24 22:57 Total Bilirubin 0.3 mg/dL (0.15-1.2) 10/04/24 22:57 AST 15 U/L (0-32) 10/04/24 22:57 ALT 11 U/L (0-33) 10/04/24 22:57 Alkaline Phosphatase 82 U/L (35-105) 10/04/24 22:57 Troponin T Baseline < 6 ng/L (0-10) 10/04/24 22:57 Total Protein 7.3 g/dL (6.6-8.7) 10/04/24 22:57 Albumin 4.2 g/dL (3.5-5.2) 10/04/24 22:57 Globulin 3.1 g/dL (1.3-4.6) 10/04/24 22:57 No radiology studies performed this visit Discharge Plan Discharge Patient Disposition: Home Clinical Impression: Headache, Hypertension Condition: Stable Prescriptions: New lisinopril 20 mg tablet 20 mg PO DAILY Qty: 30 1RF No Action lisinopril 20 mg tablet 20 mg PO DAILY Qty: 30 5RF fluoxetine [Prozac] 20 mg capsule 20 mg PO DAILY Qty: 30 5RF Discharge Orders: Discharge ED (Routine); Ordered 10/05/24 Ordered By: Ivis St Referrals: Edmond Barajas MD [Primary Care Provider, Family Practice] Discharge Diet: Usual diet Discharge Activity: Increase activity as tolerated Patient Instructions: Hypertension (ED), Opioid Safety, Pain Management Activity Restrictions/Additional Instructions: Thank you for choosing [facility] for your healthcare needs today. You have been screened and evaluated and felt safe for discharge. Health conditions do change or evolve sometimes and as such it is important that you follow up with your Primary Doctor to be re checked, 3-5 days is a general good time frame for follow up. You are always welcome to return to the ED for re assessment if your symptoms are worsening or you have new concerns Print Language: Bangladeshi Coding Level of Care Code ED Filler Machine Operator for Ivana Goldman
[2024-10-04 22:45] VITALS: BP 178/115; PULSE 74; RESP 18; O2SAT 97
[2024-10-04 23:00] VITALS: BP 163/108; PULSE 73; RESP 18; O2SAT 95
[2024-10-04 23:05] LABS: Basophils # 0.1 10^3/uL (0.0-0.1); Basophils % 0.6 %; Eosinophils # 0.1 10^3/uL (0.0-0.8); Hematocrit 45.4 % (36-47); Lymphocytes % 23.9 %; Mean Corpuscular HGB Conc 33.5 g/dL (30-55); Mean Corpuscular Hemoglobin 33.1 pg (27-33); Mean Corpuscular Volume 98.9 fl (85-98); Mean Platelet Volume 9.9 fL (7.4-10.4); Monocytes # 0.5 10^3/uL (0.2-0.9); Monocytes % 5.6 %; Neutrophils # 5.75 10^3/uL (1.8-7.7); Neutrophils % 68.7 %; Nucleated Red Blood Cells % 0 %; Platelet Count 292 10^3/cmm (157-399); Red Blood Count 4.59 10^6/uL (3.85-5.65); Red Cell Distribution Width 11.9 % (12.1-15.1); White Blood Count 8.37 10^3/uL (3.29-11.43)
[2024-10-04 23:29] VITALS: BP 168/114
[2024-10-04] MEDS: ibuprofen 800 mg tablet PO (23:29)
[2024-10-04] MEDS: lisinopril 20 mg Tablet PO (23:29)
[2024-10-04] MEDS: cloNIDine 0.1 mg Tablet PO (23:29)
[2024-10-04 23:30] VITALS: BP 164/104; PULSE 82; O2SAT 95
[2024-10-04 23:33] LABS: Troponin(5th) Baseline < 6 ng/L (0-10)
[2024-10-04 23:49] LABS: Alanine Aminotransferase 11 U/L (0-33); Albumin Level 4.2 g/dL (3.5-5.2); Alkaline Phosphatase 82 U/L (35-105); Blood Urea Nitrogen 14 mg/dL (6-20); Calcium 9.7 mg/dL (8.5-10.5); Carbon Dioxide 18 mmol/L (22-29); Chloride 103 mmol/L (98-107); Creatinine Clr Calc Pharmacy 101.6886; Globulin 3.1 g/dL (1.3-4.6); Glomerular Filtration Rate 92.2 mL/min (90-130); Glucose 93 mg/dL (65-115); Osmolality Calculated 286 mOsm/kg (285-295); Sodium 138 mmol/L (136-145); Total Bilirubin 0.3 mg/dL (0.15-1.2); Total Protein 7.3 g/dL (6.6-8.7)
[2024-10-04 23:50] LABS: Anion Gap 21.2 (5-19); Aspartate Amino Transferase 15 U/L (0-32); Potassium 4.2 mmol/L (3.5-5.1)
[2024-10-05] VITALS: BP 136/101; PULSE 70; RESP 18; O2SAT 97
[2024-10-05 00:10] VITALS: BP 136/101; PULSE 75; O2SAT 98
== END 2024-10-05 00:14 | disposition home or self-care (01) ==
PROVIDERS: Emergency Provider Emergency Medicine; PCP Family Medicine Adult Medicine
DX: R51.9 Headache, unspecified (principal); I10 Essential (primary) hypertension; F17.210 Nicotine dependence, cigarettes, uncomplicated
CPT/HCPCS: 36415; 80053; 84484; 85025; 93005; 99284; J9999

== ENCOUNTER 2024-11-07 12:53 | Emergency (ER) | payer OTHER, MEDICAID, SELFPAY ==
[2024-11-07 12:58] VITALS: BP 133/89; PULSE 98; RESP 16; TEMP 37.4; O2SAT 99
[2024-11-07 13:41] LABS: Hematocrit 41.7 % (36-47); Hemoglobin 14.30 g/dL (11.27-16.99); Mean Corpuscular HGB Conc 34.3 g/dL (30-55); Mean Corpuscular Hemoglobin 34.3 pg (27-33); Mean Corpuscular Volume 100.0 fl (85-98); Nucleated Red Blood Cells % 0 %; Platelet Count 263 10^3/cmm (157-399); Red Blood Count 4.17 10^6/uL (3.85-5.65); White Blood Count 10.06 10^3/uL (3.29-11.43)
[2024-11-07 13:55] LABS: HCG, Serum Qual Negative (Negative)
[2024-11-07 14:00] LABS: Alanine Aminotransferase 9 U/L (0-33); Albumin Level 4.4 g/dL (3.5-5.2); Alkaline Phosphatase 79 U/L (35-105); Anion Gap 18.3 (5-19); Aspartate Amino Transferase 12 U/L (0-32); Blood Urea Nitrogen 13 mg/dL (6-20); Calcium 8.9 mg/dL (8.5-10.5); Carbon Dioxide 22 mmol/L (22-29); Chloride 99 mmol/L (98-107); Creatinine Clr Calc Pharmacy 77.9130; Globulin 2.7 g/dL (1.3-4.6); Glucose 108 mg/dL (65-115); Lipase 13 U/L (13-60); Osmolality Calculated 281 mOsm/kg (285-295); Potassium 4.3 mmol/L (3.5-5.1); Sodium 135 mmol/L (136-145); Total Protein 7.1 g/dL (6.6-8.7)
--- NOTE | 2024-11-07 14:42 | W.ED.ABDPA2 ---
HPI - Abdominal Pain General: Chief Complaint: Abdominal Pain Stated Complaint: abd and back pain, n/v Time Seen by Provider: 11/07/24 13:31 Source: patient Mode of arrival: ambulatory Limitations: no limitations History of Present Illness: 39-year-old female who presents to the ED with complaints of L sided abdominal pain, nausea without vomiting, and diarrhea, onset about 0500 this morning. States pain began fairly abruptly. Patient reports her abdominal pain radiates to her left lower back, but that she also has left flank pain as well. She also reports of dysuria and decreased urine output. She was concerned for kidney stone as she has had history of stones in the past. No rash. No known history of ovarian cysts. MD elicited complaint: abdominal pain Pertinent past history: kidney stones Onset (ago): hour(s) Pain Consistency: constant Location: LLQ and L flank Severity: moderate Quality: sharp Radiation: none Migration to: no migration Exacerbating factors: nothing Relieving factors: nothing Associated Symptoms: Reports dysuria and nausea; Denies change in bowel habits, chills, constipation, diarrhea, fever(s), hematuria and vomiting Related Data Home Medications ?Medication ?Instructions ?Recorded ?Confirmed lisinopril 20 mg tablet 20 mg PO QPM 11/07/24 11/07/24 Previous Rx's ?Medication ?Instructions ?Recorded ciprofloxacin HCl 500 mg tablet 500 mg PO Q12H #14 tabs 11/07/24 (Cipro) Allergies Allergy/AdvReac Type Severity Reaction Status Date / Time buspirone (From BuSpar) Allergy ADR-Depress Verified 10/04/24 21:16 ion Review of Systems Const: Denies: fever(s), chills, body aches, fatigue or malaise Card: Denies: chest pain Resp: Denies: dyspnea GI: Reports: abdominal pain and nausea; Denies: vomiting, diarrhea, constipation or change in bowel habits : Reports: dysuria and urinary frequency; Denies: flank pain, difficulty voiding or hematuria Musc: Reports: back pain (L flank); Denies: neck pain, extremity pain, extremity swelling, joint pain, joint swelling or joint redness Skin/Breast: Denies: rash Neuro: Denies: dizziness PFS ED PFSH: Medical History IBS (irritable bowel syndrome) Carpal tunnel syndrome of right wrist Numbness in both hands Vaginal bleeding between periods HTN (hypertension) with goal to be determined Surgical History H/O elbow surgery H/O wrist surgery Family History Father Heart disease COPD (chronic obstructive pulmonary disease) Lung disease Mother No problems noted. Social History Smoking and tobacco/nicotine status: current every day tobacco/nicotine user cigarettes Packs smoked per day: 1 Years cigarettes smoked: 8 Quit status (tobacco/nicotine): not considering quitting Second hand smoke exposure: Yes Alcohol intake: current Alcohol intake frequency: 0-2 Drinks per Day Substance/Drug Use: current Substance/Drug use frequency: daily Physical Exam Const: COMMON NORMALS: average body habitus, no limitations, healthy appearing, alert and well nourished GENERAL APPEARANCE: cooperative and in distress (appears slightly uncomfortable) Eye: COMMON NORMALS: no scleral icterus Chest: COMMONS NORMALS: normal inspection of the chest and normal palpation of entire chest wall Resp: COMMON NORMALS: normal respiratory effort and clear to auscultation bilaterally AUSCULTATION: clear to auscultation bilaterally Cardio: COMMON NORMALS: regular rate and regular rhythm RATE: regular rate RHYTHM: regular rhythm GI: COMMON NORMALS: Normal to inspection, nondistended, normoactive bowel sounds present, Soft to palpation, No hepatosplenomegaly present and no masses INSPECTION: Yes normal to inspection AUSCULTATION: Yes normoactive bowel sounds PALPATION: Yes Soft to palpation, Yes Tenderness to palpation present (GI) (throughout L side of abdomen), No Guarding due to palpation present (GI), No Rigid due to palpation and Yes No hepatosplenomegaly present : BLADDER/KIDNEY EXAM: Yes CVA tenderness on the left Back/Pelvis: COMMON NORMALS: thoracic and lumbar spine normal to inspection, no thoracic nor lumbar tenderness, thoraco-lumbar ROM normal and straight leg raise negative bilaterally GENERAL BACK: Yes CVA tenderness Extremity: GENERAL: Yes normal exam except as noted Neuro: COMMON NORMALS: moves all extremities, no focal motor deficits and no sensory deficits noted SENSORIUM/ORIENTATION: Yes alert Skin: COMMON NORMALS: no rashes or lesions noted GENERAL SKIN EXAM: no rashes or lesions noted Course Vital Signs: Vital signs: Vital Signs Temperature 99.3 F 11/07/24 12:58 Pulse Rate 83 11/07/24 15:30 Respiratory Rate 18 11/07/24 16:11 Blood Pressure 139/80 11/07/24 15:30 Pulse Oximetry 98 11/07/24 16:11 Oxygen Delivery Me thod Room Air 11/07/24 15:30 MDM - Abdominal Pain Medical Decision Making Patient here for left-sided abdominal pain back pain, nausea, diarrhea starting today. Vital signs are stable. She has a normal white count. Chemistry is unremarkable. UA has a cloudy appearance with 2+ leukocyte esterase as well as 21-50 WBCs. Somewhat contaminated specimen. She is symptomatic complaining of dysuria. Will treat for ascending infection with Ciprofloxacin. CT renal performed due to concern for urolithiasis. This was unremarkable. Return to ED precautions discussed. Medical Records I reviewed the patient's medical records. Lab Data I reviewed the patient's lab results. 11/07/24 13:35 11/07/24 13:35 Labs/Radiology: Radiology Impressions Abdomen/Pelvis CT 11/07/24 14:54 IMPRESSION: 1. No renal obstruction or perinephric stranding. 2. Very tiny, 2 mm calcifications in the RIGHT renal pelvis. No ureteral calcification or obstruction identified. 3. Normal appendix. Laboratory Results WBC 10.06 10^3/uL (3.29-11.43) 11/07/24 13:35 RBC 4.17 10^6/uL (3.85-5.65) 11/07/24 13:35 Hgb 14.30 g/dL (11.27-16.99) 11/07/24 13:35 Hct 41.7 % (36-47) 11/07/24 13:35 MCV 100.0 fl (85-98) H 11/07/24 13:35 MCH 34.3 pg (27-33) H 11/07/24 13:35 MCHC 34.3 g/dL (30-55) 11/07/24 13:35 RDW 13.3 % (12.1-15.1) 11/07/24 13:35 Plt Count 263 10^3/cmm (157-399) 11/07/24 13:35 MPV 10.0 fL (7.4-10.4) 11/07/24 13:35 Neut % (Auto) 90.9 % 11/07/24 13:35 Lymph % (Auto) 4.7 % 11/07/24 13:35 [place] % (Auto) 3.7 % 11/07/24 13:35 Eos % (Auto) 0.1 % 11/07/24 13:35 Baso % (Auto) 0.1 % 11/07/24 13:35 Neut # (Auto) 9.15 10^3/uL (1.8-7.7) H 11/07/24 13:35 Lymph # (Auto) 0.5 10^3/uL (0.8-4.8) L 11/07/24 13:35 [place] # (Auto) 0.4 10^3/uL (0.2-0.9) 11/07/24 13:35 Eos # (Auto) 0.0 10^3/uL (0.0-0.8) 11/07/24 13:35 Baso # (Auto) 0.0 10^3/uL (0.0-0.1) 11/07/24 13:35 Nucleated RBC % (auto) 0 % 11/07/24 13:35 Nucleated RBCs # 0.0 /100WBC 11/07/24 13:35 Sodium 135 mmol/L (136-145) L 11/07/24 13:35 Potassium 4.3 mmol/L (3.5-5.1) 11/07/24 13:35 Chloride 99 mmol/L (98-107) 11/07/24 13:35 Carbon Dioxide 22 mmol/L (22-29) 11/07/24 13:35 Anion Gap 18.3 (5-19) 11/07/24 13:35 BUN 13 mg/dL (6-20) 11/07/24 13:35 Creatinine 0.9 mg/dL (0.5-0.9) 11/07/24 13:35 GFR Calculation 69.0 mL/min (90-130) L 11/07/24 13:35 Glucose 108 mg/dL (65-115) 11/07/24 13:35 Calculated Osmolality 281 mOsm/kg (285-295) L 11/07/24 13:35 Calcium 8.9 mg/dL (8.5-10.5) 11/07/24 13:35 Total Bilirubin 0.8 mg/dL (0.15-1.2) 11/07/24 13:35 AST 12 U/L (0-32) 11/07/24 13:35 ALT 9 U/L (0-33) 11/07/24 13:35 Alkaline Phosphatase 79 U/L (35-105) 11/07/24 13:35 Total Protein 7.1 g/dL (6.6-8.7) 11/07/24 13:35 Albumin 4.4 g/dL (3.5-5.2) 11/07/24 13:35 Globulin 2.7 g/dL (1.3-4.6) 11/07/24 13:35 Lipase 13 U/L (13-60) 11/07/24 13:35 HCG, Qual Negative (Negative) 11/07/24 13:35 Urine Color Yellow (Yellow) 11/07/24 15:39 Urine Appearance Cloudy (CLEAR) A 11/07/24 15:39 Urine pH 5.5 (5-7) 11/07/24 15:39 Ur Specific [place] 1.023 (1.005-1.030) 11/07/24 15:39 Urine Protein Trace (Negative) A 11/07/24 15:39 Urine Glucose (UA) Negative (Normal) 11/07/24 15:39 Urine Ketones Trace (Negative) 11/07/24 15:39 Urine Blood Non-haemolysed trace (Negative) 11/07/24 15:39 Urine Nitrate Negative (Negative) 11/07/24 15:39 Urine Bilirubin Negative (Negative) 11/07/24 15:39 Urine Urobilinogen 1.0 mg/dL (Negative) 11/07/24 15:39 Ur Leukocyte Esterase 2+ (Negative) A 11/07/24 15:39 Urine RBC 0-2 /hpf (0-2) 11/07/24 15:39 Urine WBC 21-50 /hpf (0-5) H 11/07/24 15:39 Ur Squamous Epith Cells 11-20 /hpf (0-5) H 11/07/24 15:39 Amorphous Sediment Not Reportable 11/07/24 15:39 Urine Bacteria 2+ /hpf (NONE) H 11/07/24 15:39 Hyaline Casts 0.40 /lpf 11/07/24 15:39 All radiology interpretation(s) finalized by discharge Discharge Plan Discharge Patient Disposition: Home Clinical Impression: UTI (urinary tract infection) Qualifiers: Urinary tract infection type: acute cystitis Hematuria presence: without hematuria Qualified Code(s): N30.00 - Acute cystitis without hematuria Condition: Stable Prescriptions: New ciprofloxacin HCl [Cipro] 500 mg tablet 500 mg PO Q12H Qty: 14 0RF No Action lisinopril 20 mg tablet 20 mg PO QPM Discharge Orders: Discharge ED (Routine); Ordered 11/07/24 Ordered By: Mckenzie Heath Referrals: Edmond Braajas MD [Primary Care Provider, Family Practice] Patient Instructions: Patient Portal & Balbir Instructions Activity Restrictions/Additional Instructions: We discussed, please fill antibiotics and start them immediately. You need to return the emergency department for worsening flank or abdominal pain, fevers, repetitive episodes of vomiting, inability to tolerate your antibiotics, generally feeling worse or unwell, or any other concerns you may have. Print Language: Azeri Coding Level of Care Code ED Document Preparation Specialist for Ivana Goldman
--- NOTE | 2024-11-07 14:54 | CT_ITS ---
WS: [id number] CT ABDOMEN AND PELVIS NONCONTRAST HISTORY: L flank/abdominal pain TECHNIQUE: Imaging performed through the abdomen and pelvis. Coronal and sagittal reformats are submitted. All CT scans at [facility] use at least one of these dose optimization techniques: automated exposure control; mA and/or kV adjustment per patient size (includes targeted exams where dose is matched to clinical indication); or iterative reconstruction. DLP: 543.33 mGy.cm COMPARISON: None available. Lower thorax: Lung bases are clear. Visualized heart is normal. No hiatal hernia. Liver: Normal size liver. No mass or bile duct dilatation. Gallbladder: Normal gallbladder. No pericholecystic fluid or cholelithiasis. No gallbladder wall thickening. Pancreas: Normal size and attenuation. Normal pancreatic duct. No pancreatitis or mass. Spleen: Normal. Adrenal glands: Normal. No mass. Right kidney: Normal size kidney with no mass or hydronephrosis. There are few very tiny calcifications which are nonobstructing in the renal pelvis. Left kidney: Normal size kidney with no mass or hydronephrosis. Aorta: Normal abdominal aorta, no aneurysm or atherosclerosis. No free fluid, intraperitoneal air or significant lymphadenopathy. GI tract: Normal noncontrast imaging of the stomach, small bowel and colon. No obstruction or wall thickening. Normal appendix. Abdominal wall: Negative. No hernia. Pelvis: Normal anteverted uterus. No free fluid. Both ovaries are identified and contain small follicles. Osseous structures: Mild increase in the lumbar lordosis. CT/CT kidney stone [id number] IMPRESSION: 1. No renal obstruction or perinephric stranding. 2. Very tiny, 2 mm calcifications in the RIGHT renal pelvis. No ureteral calci fication or obstruction identified. 3. Normal appendix.
[2024-11-07] MEDS: ondansetron 2 mg/ML SDV 2 mL 4 MG IVP (15:14)
[2024-11-07 15:30] VITALS: BP 139/80; PULSE 83; O2SAT 99
[2024-11-07 16:04] LABS: Glucose Urine UA Negative (Normal); Nitrate Urine Negative (Negative); Specific Gravity, Urine 1.023 (1.005-1.030)
[2024-11-07 16:09] LABS: Add Urine Microscopic? YES
[2024-11-07 16:11] VITALS: RESP 18; O2SAT 98
[2024-11-07] MEDS: morphine 4 mg/mL SDV 1 mL IVP (16:11)
[2024-11-07 16:41] VITALS: BP 136/87; PULSE 86; O2SAT 96
== END 2024-11-07 16:42 | disposition home or self-care (01) ==
PROVIDERS: Emergency Medicine; Emergency Provider Physician Assistant; PCP Family Medicine Adult Medicine
DX: N30.00 Acute cystitis without hematuria (principal); F17.210 Nicotine dependence, cigarettes, uncomplicated; I10 Essential (primary) hypertension
CPT/HCPCS: 36415; 74176; 80053; 81001; 83690; 84703; 85025; 87086; 96361; 96374; 96375; 99285; J1885; J2270; J2405; J7030